=== PATIENT | female | born 1980 | race African-American/Black ===

== ENCOUNTER 2016-05-26 16:09 | Emergency (ER) | payer OTHER ==
[2016-05-26] MEDS ORDERED: Zofran 4 MG/2 ML VIAL IV ONE (16:59)
[2016-05-26] MEDS ORDERED: Sodium Chloride 0.9% 1000 ML 1,000 ML IV STA (16:59)
--- NOTE | 2016-05-26 17:02 | ERPHSYRPT ---
- History of Present Illness Time Seen by Provider: 05/26/16 16:40 Source: patient Patient Subjective Stated Complaint: pt states she was dx with influneza B 3 days ago at [facility]. pt states she was seen again last pm at [facility] for headache and neck pain, states lab results were good. pt c/o neck and back pain with low grade fever. Triage Nursing Assessment: pt pink, warm, dry. pt ambulated into ER without difficulty. Physician History: PATIENT EVALUATED AT [facility] DIAGNOSED WITH INFLUENZA B THE PAST 4 DAYS, HAS NONPRODUCTIVE COUGH AND SEVERE NECK STIFFNESS ASSOCIATED WITH PAIN AND HEADACHE WITH FEVER. 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 Associated Symptoms: cough, headache, sore throat, stiff neck International travel in last 2 weeks: No Allergies/Adverse Reactions: No Known Drug Allergies Allergy (Verified 05/26/16 16:35) Home Medications: Hydrocodone Bit/Acetaminophen [Amado 5-325 Tablet] 1 each PO Q6H PRN PRN [History] Hx Tetanus, Diphtheria Vaccination/Date Given: Yes (up to date) Hx Influenza Vaccination/Date Given: No Hx Pneumococcal Vaccination/Date Given: No Immunizations Up to Date: Yes - Review of Systems Constitutional: Fever, No Chills Eyes: No Symptoms Ears, Nose, & Throat: No Symptoms Respiratory: No Cough, No Dyspnea Cardiac: No Chest Pain, No Edema, No Syncope Abdominal/Gastrointestinal: No Abdominal Pain, No Nausea, No Vomiting, No Diarrhea Genitourinary Symptoms: No Dysuria Musculoskeletal: Neck Pain, No Back Pain Skin: No Rash Neurological: Headache, No Dizziness, No Focal Weakness, No Sensory Changes Psychological: No Symptoms Endocrine: No Symptoms All Other Systems: Reviewed and Negative - Past Medical History Pertinent Past Medical History: Yes Neurological History: Seizures ENT History: No Pertinent History Cardiac History: No Pertinent History Respiratory History: No Pertinent History Endocrine Medical History: No Pertinent History Musculoskeletal History: No Pertinent History GI Medical History: Diverticulitis History: No Pertinent History Psycho-Social History: Depression, Eating Disorders Female Reproductive Disorders: Endometriosis Other Medical History: updated 01/01/15 - Past Surgical History Past Surgical History: Yes Neuro Surgical History: No Pertinent History Cardiac: No Pertinent History Respiratory: No Pertinent History Gastrointestinal: Appendectomy, Exploratory Laparoscopy Genitourinary: No Pertinent History Musculoskeletal: No Pertinent History Female Surgical History: Other Other Surgical History: ovary removed. fallopian tube removal - Social History Smoking Status: Current every day smoker How long have you smoked: 15 Exposure to second hand smoke: Yes Drug Use: none Patient Lives Alone: No - Female History Hx Last Menstrual Period: 2 yrs ago - Nursing Vital Signs Nursing Vital Signs: Initial Vital Signs Temperature 100.2 F Temperature Source Oral Pulse Rate 81 Respiratory Rate 16 Blood Pressure [Right Arm] 102/63 Pain Intensity 8 - Physical Exam General Appearance: no apparent distress, alert Eye Exam: PERRL/EOMI ENT Exam: normal ENT inspection, No pharyngeal erythema, No tonsillar exudate Neck Exam: normal inspection, limited range of motion, stiff neck, No meningismus Respiratory Exam: normal breath sounds, lungs clear, no respiratory distress Cardiovascular/Chest Exam: normal heart sounds, regular rate/rhythm, No murmur, No edema Gastrointestinal/Abdominal Exam: soft, non tender, no distention Extremity Exam: non-tender, normal range of motion, normal inspection, normal capillary refill Neurologic Exam: alert, oriented x 3, cooperative, vp foundation II-XII nml as tested, normal mood/affect, sensation nml, No motor deficits Skin Exam: normal color, warm, dry, No rash SpO2 Interpretation: normal SpO2: 97 Oxygen Delivery: Room Air Procedures - Lumbar Puncture Timeout: Performed Indication: fever, headache, r/o meningitis Lumbar Puncture: consent obtained, lying, betadine prep (IN A LEFT LATERAL DECUBITUS POSITION), 1% lidocaine local anesth, size of needle (22GA SPINAL NEEDLE, ), 3-4 lumbar space, fluid color clear, no complications (MIDLINE APPROACH X 2 ATTEMPTS, UNDER ASEPTIC TECHNIQUE) Ordered Tests: Active Orders 24 hr Category Date Time Status IV Insertion STAT Care 05/26/16 16:59 Active Oxygen-ED Only NASAL CANNULA 2 lpm Care 05/26/16 17:01 Active HEAD WITHOUT CONTRAST [CT] Stat Exams 05/26/16 17:00 Taken BLOOD CULTURE Stat Lab 05/26/16 17:03 Received BMP Stat Lab 05/26/16 17:02 Completed CBC W DIFF Stat Lab 05/26/16 17:02 Completed CSF GLUCOSE Stat Lab 05/26/16 18:58 Completed CSF PROTEIN Stat Lab 05/26/16 18:58 Completed CSF, CELL COUNT Stat Lab 05/26/16 18:58 Completed CULTURE, THROAT Stat Lab 05/26/16 17:19 Received CULTURE,CSF Stat Lab 05/26/16 18:33 Uncollected CULTURE,CSF Stat Lab 05/26/16 19:05 Results HCG,QUALITATIVE URINE Stat Lab 05/26/16 17:28 Completed STREP SCREEN-BETA A Stat Lab 05/26/16 17:19 Completed UA W/ MICROSCOPIC Stat Lab 05/26/16 17:28 Completed Medication Summary Discontinued Medications Generic Name Dose Route Start Last Admin Trade Name Ady PRN Reason Stop Dose Admin Acetaminophen 650 mg 05/26/16 17:03 05/26/16 17:13 Tylenol 325 Mg PO 05/26/16 17:04 650 mg STAT STA Administration Acetaminophen Confirm 05/26/16 17:11 Tylenol 325 Mg Administered 05/26/16 17:12 Dose 650 mg .ROUTE .STK-MED ONE Hydromorphone HCl Confirm 05/26/16 17:11 Hydromorphone 1 Mg/Ml Ampule Administered 05/26/16 17:12 Dose 1 mg .ROUTE .STK-MED ONE Hydromorphone HCl 1 mg 05/26/16 17:15 05/26/16 17:20 Hydromorphone 1 Mg/Ml Ampule IV 05/26/16 17:16 1 mg STAT ONE Administration Hydromorphone HCl 1 mg 05/26/16 18:32 05/26/16 18:36 Hydromorphone 1 Mg/Ml Ampule IV 05/26/16 18:33 1 mg STAT ONE Administration Hydromorphone HCl Confirm 05/26/16 18:35 Hydromorphone 1 Mg/Ml Ampule Administered 05/26/16 18:36 Dose 1 mg .ROUTE .STK-MED ONE Sodium Chloride 1,000 mls @ 999 mls/hr 05/26/16 16:59 05/26/16 17:13 Sodium Chloride 0.9% 1000 Ml IV 05/26/16 17:59 999 mls/hr .Q1H1M STA Administration Sodium Chloride Confirm 05/26/16 17:11 Sodium Chloride 0.9% 1000 Ml Administered 05/26/16 17:12 Dose 1,000 mls @ ud .ROUTE .STK-MED ONE Ceftriaxone Sodium/Dextrose Confirm 05/26/16 17:45 Rocephin 2 Gm-D5w 50ml Bag Administered 05/26/16 17:46 Dose 50 mls @ ud IV .STK-MED ONE Ceftriaxone Sodium/Dextrose 50 mls @ 100 mls/hr 05/26/16 17:52 05/26/16 17:55 Rocephin 2 Gm-D5w 50ml Bag IV 05/26/16 18:21 100 mls/hr STAT ONE Administration Lorazepam 2 mg 05/26/16 17:52 05/26/16 17:55 Ativan 2 Mg/1 Ml Vial IV 05/26/16 17:53 2 mg STAT ONE Administration Lorazepam Confirm 05/26/16 17:54 Ativan 2 Mg/1 Ml Vial Administered 05/26/16 17:55 Dose 2 mg .ROUTE .STK-MED ONE Ondansetron HCl 4 mg 05/26/16 16:59 05/26/16 17:13 Zofran 4 Mg/2 Ml Vial IV 05/26/16 17:00 4 mg STAT ONE Administration Ondansetron HCl Confirm 05/26/16 17:11 Zofran 4 Mg/2 Ml Vial Administered 05/26/16 17:12 Dose 4 mg .ROUTE .STK-MED ONE Lab/Rad Data: Laboratory Result Diagrams 05/26/16 17:02 05/26/16 17:02 Laboratory Results 05/26/16 05/26/16 05/26/16 Range/Units 18:58 18:58 17:28 WBC (4.0-10.5) K/mm3 RBC (4.1-5.4) M/mm3 Hgb (12.0-16.0) gm/dl Hct (35-47) % MCV (78-100) fl MCH (26-32) pg MCHC (32-36) g/dl RDW (11.5-14.0) % Plt Count (150-450) K/mm3 MPV (6-9.5) fl Gran % (36.0-66.0) % Lymphocytes % (24.0-44.0) % Monocytes % (0.0-12.0) % Eosinophils % (0.00-5.0) % Basophils % (0.0-0.4) % Basophils # (0-0.4) Sodium (136-145) mEq/L Potassium (3.5-5.1) mEq/L Chloride (98-107) mEq/L Carbon Dioxide (21-32) mEq/L Anion Gap (5-15) MEQ/L BUN (9-20) mg/dL Creatinine (0.55-1.30) mg/dl Estimated GFR ML/MIN Glucose (70-110) MG/DL Calcium (8.5-10.1) mg/dL Ur Collection Type Urine Color (YELLOW) Urine Appearance (CLEAR) Urine pH (5-6) Ur Specific [place] (1.005-1.025) Urine Protein (Negative) Urine Glucose (UA) (NEGATIVE) mg/dL Urine Ketones (NEGATIVE) Urine Nitrite (NEGATIVE) Urine Bilirubin (NEGATIVE) Urine Urobilinogen (0-1) mg/dL Urine WBC (Auto) (NEGATIVE) Urine RBC (Auto) (0-5) Jairo/ul Urine Microscopic RBC (0-2) /HPF Urine Microscopic WBC (0-5) /HPF Ur Epithelial Cells (FEW) /HPF Urine Bacteria (NEGATIVE) /HPF Urine Trichomonas (NEGATIVE) /HPF Urine HCG, Qual NEGATIVE (Negative) CSF Appearance CLEAR CSF Color COLORLESS CSF WBC 1 (0-6) CU. MM CSF RBC 1 (0-2) CU. MM CSF Protein (2) 26.0 (15-45) MG/DL CSF Glucose 69 (40-75) MG/DL Streptococcus Screen (Negative) Specimen Received 05/26/16 05/26/16 05/26/16 Range/Units 17:28 17:19 17:02 WBC (4.0-10.5) K/mm3 RBC (4.1-5.4) M/mm3 Hgb (12.0-16.0) gm/dl Hct (35-47) % MCV (78-100) fl MCH (26-32) pg MCHC (32-36) g/dl RDW (11.5-14.0) % Plt Count (150-450) K/mm3 MPV (6-9.5) fl Gran % (36.0-66.0) % Lymphocytes % (24.0-44.0) % Monocytes % (0.0-12.0) % Eosinophils % (0.00-5.0) % Basophils % (0.0-0.4) % Basophils # (0-0.4) Sodium 142 (136-145) mEq/L Potassium 3.2 L (3.5-5.1) mEq/L Chloride 105 (98-107) mEq/L Carbon Dioxide 24.6 (21-32) mEq/L Anion Gap 15.1 H (5-15) MEQ/L BUN 5 L (9-20) mg/dL Creatinine 0.71 (0.55-1.30) mg/dl Estimated GFR > 60 ML/MIN Glucose 116 H (70-110) MG/DL Calcium 8.2 L (8.5-10.1) mg/dL Ur Collection Type CLEAN CATCH Urine Color YELLOW (YELLOW) Urine Appearance CLEAR (CLEAR) Urine pH 7.0 (5-6) Ur Specific [place] 1.015 (1.005-1.025) Urine Protein NEGATIVE (Negative) Urine Glucose (UA) NEGATIVE (NEGATIVE) mg/dL Urine Ketones NEGATIVE (NEGATIVE) Urine Nitrite NEGATIVE (NEGATIVE) Urine Bilirubin NEGATIVE (NEGATIVE) Urine Urobilinogen 1 (0-1) mg/dL Urine WBC (Auto) SMALL (NEGATIVE) Urine RBC (Auto) SMALL (0-5) Jairo/ul Urine Microscopic RBC 2-5 (0-2) /HPF Urine Microscopic WBC 15-25 (0-5) /HPF Ur Epithelial Cells MODERATE (FEW) /HPF Urine Bacteria RARE (NEGATIVE) /HPF Urine Trichomonas PRESENT (NEGATIVE) /HPF Urine HCG, Qual (Negative) CSF Appearance CSF Color CSF WBC (0-6) CU. MM CSF RBC (0-2) CU. MM CSF Protein (2) (15-45) MG/DL CSF Glucose (40-75) MG/DL Streptococcus Screen NEGATIVE (Negative) Specimen Received 05/26/16 1710 05/26/16 Range/Units 17:02 WBC 6.4 (4.0-10.5) K/mm3 RBC 4.47 (4.1-5.4) M/mm3 Hgb 13.2 (12.0-16.0) gm/dl Hct 38.7 (35-47) % MCV 86.6 (78-100) fl MCH 29.5 (26-32) pg MCHC 34.1 (32-36) g/dl RDW 14.0 (11.5-14.0) % Plt Count 187 (150-450) K/mm3 MPV 9.2 (6-9.5) fl Gran % 70.8 H (36.0-66.0) % Lymphocytes % 16.6 L (24.0-44.0) % Monocytes % 12.4 H (0.0-12.0) % Eosinophils % 0.0 (0.00-5.0) % Basophils % 0.2 (0.0-0.4) % Basophils # 0.01 (0-0.4) Sodium (136-145) mEq/L Potassium (3.5-5.1) mEq/L Chloride (98-107) mEq/L Carbon Dioxide (21-32) mEq/L Anion Gap (5-15) MEQ/L BUN (9-20) mg/dL Creatinine (0.55-1.30) mg/dl Estimated GFR ML/MIN Glucose (70-110) MG/DL Calcium (8.5-10.1) mg/dL Ur Collection Type Urine Color (YELLOW) Urine Appearance (CLEAR) Urine pH (5-6) Ur Specific [place] (1.005-1.025) Urine Protein (Negative) Urine Glucose (UA) (NEGATIVE) mg/dL Urine Ketones (NEGATIVE) Urine Nitrite (NEGATIVE) Urine Bilirubin (NEGATIVE) Urine Urobilinogen (0-1) mg/dL Urine WBC (Auto) (NEGATIVE) Urine RBC (Auto) (0-5) Jairo/ul Urine Microscopic RBC (0-2) /HPF Urine Microscopic WBC (0-5) /HPF Ur Epithelial Cells (FEW) /HPF Urine Bacteria (NEGATIVE) /HPF Urine Trichomonas (NEGATIVE) /HPF Urine HCG, Qual (Negative) CSF Appearance CSF Color CSF WBC (0-6) CU. MM CSF RBC (0-2) CU. MM CSF Protein (2) (15-45) MG/DL CSF Glucose (40-75) MG/DL Streptococcus Screen (Negative) Specimen Received - Progress Progress: improved Progress Note: 05/26/16 17:10 PATIENT ADMINISTERED IV NORMAL SALINE 1LITER, BOLUS, ZOFRAN 4MG, DILAUDID 1MG, ATIVAN 1MG IV 05/26/16 17:10 DISCUSSED WITH PATIENT RISK VS BENEFIT CONCERNING LUMBAR PUNCTURE FOR NECK STIFFNESS AND SEVERE HEADACHE, PROCEDURE CONSENT SIGNED AT 1715- PATIENT GIVE ROCEPHIN 2GM IVPB 05/26/16 20:16 Counseled pt/family regarding: lab results, diagnosis, need for follow-up, rad results - Departure Time of Disposition: 20:30 Departure Disposition: Home Clinical Impression: ACUTE SINUSITIS, URINARY TRACT INFECTION Condition: Stable Critical Care Time: No Additional Instructions: FOLLOWUP WITH YOUR FAMILY PHYSICIAN IN 1 WEEK. ANTIBIOTIC LEVAQUIN 500MG DAILY FOR 10 DAYS. VALIUM 5MG TWICE DAILY FOR MUSCLE SPASMS. NORCO 10/325 EVERY 4 HOURS FOR PAIN DISCOMFORT. Prescriptions: Hydrocodone/APAP 10/325 mg [Amado 10/325 MG Tablet] 1 tab PO Q4H PRN PRN # 15 tablet PRN Reason: Pain Diazepam 5 mg [Valium 5 MG] 5 mg PO BIDPRN PRN #10 tablet PRN Reason: Muscle Spasms Levofloxacin [Levaquin] 500 mg PO DAILY #10 tablet
[2016-05-26] MEDS ORDERED: TYLENOL 325 MG PO STA (17:03)
[2016-05-26] MEDS ORDERED: Hydromorphone 1 mg/ml Ampule ONE ×2 (17:11→18:35)
[2016-05-26] MEDS ORDERED: Sodium Chloride 0.9% 1000 ML 1,000 ML ONE (17:11)
[2016-05-26] MEDS ORDERED: Zofran 4 MG/2 ML VIAL ONE (17:11)
[2016-05-26] MEDS ORDERED: TYLENOL 325 MG ONE (17:11)
[2016-05-26 17:15] LABS: BASOPHIL % 0.2 % (0.0-0.4); Granulocytes % 70.8 % (36.0-66.0); Lymphocytes % 16.6 % (24.0-44.0); Mean Cell Volume 86.6 fl (78-100); Mean Corpuscular Hemoglobin 29.5 pg (26-32); Mean Platelet Volume 9.2 fl (6-9.5); Monocytes % 12.4 % (0.0-12.0); Platelet Count 187 K/mm3 (150-450); Red Blood Count 4.47 M/mm3 (4.1-5.4); White Blood Count 6.4 K/mm3 (4.0-10.5)
[2016-05-26] MEDS ORDERED: Hydromorphone 1 mg/ml Ampule IV ONE ×2 (17:15→18:32)
[2016-05-26] MEDS ORDERED: ROCEPHIN 2 Gm-D5w 50ML BAG** 50 ML IV ONE ×2 (17:45→17:52)
[2016-05-26] MEDS ORDERED: Ativan 2 MG/1 ML VIAL IV ONE (17:52)
[2016-05-26] MEDS ORDERED: Ativan 2 MG/1 ML VIAL ONE (17:54)
[2016-05-26 17:56] LABS: Collection Type CLEAN CATCH
[2016-05-26 17:57] LABS: Bacteria RARE /HPF (NEGATIVE); COMPLETE URINE MICROSCOPIC? YES; Epithelial Cells MODERATE /HPF (FEW); Trichomonas PRESENT /HPF (NEGATIVE); WBC 15-25 /HPF (0-5)
[2016-05-26 18:09] LABS: ANION GAP 15.1 MEQ/L (5-15); BLOOD UREA NITROGEN 5 mg/dL (9-20); CHLORIDE 105 mEq/L (98-107); Carbon Dioxide 24.6 mEq/L (21-32); Glucose 116 MG/DL (70-110); Potassium 3.2 mEq/L (3.5-5.1); SODIUM 142 mEq/L (136-145)
[2016-05-26 19:16] LABS: CSF CLARITY CLEAR; CSF COLOR COLORLESS
[2016-05-26] MEDS ORDERED: Norco 10/325 MG Tablet PO ONE (20:16)
[2016-05-26 20:25] VITALS: O2SAT 97
[2016-05-26] MEDS ORDERED: Norco 10/325 MG Tablet ONE (20:26)
[2016-05-26 20:32] VITALS: BP 117/54; PULSE 77
--- NOTE | 2016-05-26 21:08 | XRAY ---
Indication: Severe headache, stiff neck, and bilateral leg numbness for over one week. Multiple contiguous axial images obtained through the head without contrast. Comparison: September 27, 2012. Again normal appearing brain parenchyma, ventricles, and bony calvarium. There is moderate mucosal thickening of the visualized maxillary and sphenoid sinuses bilaterally and lesser degree frontal sinuses. Visualized mastoid air cells are clear. Impression: Again no acute intracranial abnormalities. Incidental paranasal sinuses disease. Comment: Preliminary interpretation was made by [facility]. No discrepancy. CTDI 67.22
== END 2016-05-26 20:34 | disposition home or self-care (01) ==
LOC: ED 16:09
DX: J01.90 Acute sinusitis, unspecified (principal); N39.0 Urinary tract infection, site not specified; R05 Cough; M43.6 Torticollis; R51 Headache
CPT/HCPCS: 36000; 36415; 62270; 70450; 80048; 81000; 82945; 84157; 84703; 85025; 86403; 87040; 87070; 87102; 87430; 89050; 96360; 96365; 96374; 96375; 96376; 99285; J0696; J1170; J2060; J2405; A9270-GY

== ENCOUNTER 2016-11-08 11:56 | Emergency (ER) | payer OTHER ==
[2016-11-08] MEDS ORDERED: Sodium Chloride 0.9% 1000 ML 1,000 ML IV STA (12:30)
[2016-11-08] MEDS ORDERED: Vistaril 50 MG/ML IM ONE ×2 (12:30→12:42)
[2016-11-08] MEDS ORDERED: Pepcid 20 MG VIAL IV ONE ×2 (12:30→12:42)
[2016-11-08] MEDS ORDERED: TORAdol 30 mg Injection IV ONE (12:30)
[2016-11-08] MEDS ORDERED: TORAdol 30 mg Injection ONE (12:42)
[2016-11-08] MEDS ORDERED: Sodium Chloride 0.9% 1000 ML 1,000 ML ONE (12:42)
--- NOTE | 2016-11-08 12:47 | ERPHSYRPT ---
- History of Present Illness Time Seen by Provider: 11/08/16 12:12 Historian: patient Patient Subjective Stated Complaint: pt states she was seen at [facility] ER 4 days ago. states she had a ct scan that was negative. pt states she does not have a family Dr to follow up wtih. pt c/o pain inj left lower quad. Triage Nursing Assessment: pt pink, warm, dry. abdomen soft tender in left lower quad. bowel sounds present in all 4 quads. Physician History: CC: abd pain HX: 36 y/o patient moved here from [place]. She has hx of diverticulitis. She has LLQ abd pain, some blood in stool, N/V. Normal urination. No fever or chills. She had ER visit at [facility] including CT earlier this week and took norco thru there. She had prior hysterectomy with left oophorectomy, appendectomy. Pain is moderately severe and makes her curl in a ball. Allergies/Adverse Reactions: No Known Drug Allergies Allergy (Verified 11/08/16 12:12) Home Medications: Multivits,Ca,Minerals/Iron/FA [Women's Daily Formula Caplet] 1 each PO DAILY [History] Hx Tetanus, Diphtheria Vaccination/Date Given: Yes (up to date) Hx Influenza Vaccination/Date Given: No Hx Pneumococcal Vaccination/Date Given: No Immunizations Up to Date: Yes - Review of Systems Constitutional: Malaise, No Fever, No Chills Eyes: No Symptoms Ears, Nose, & Throat: No Symptoms Respiratory: No Cough, No Dyspnea Cardiac: No Chest Pain Abdominal/Gastrointestinal: Abdominal Pain, Nausea, Vomiting, Hematochezia, No Constipation Genitourinary Symptoms: No Dysuria Musculoskeletal: No Back Pain Skin: No Rash Neurological: No Headache All Other Systems: Reviewed and Negative - Past Medical History Pertinent Past Medical History: Yes Neurological History: Seizures ENT History: No Pertinent History Cardiac History: No Pertinent History Respiratory History: No Pertinent History Endocrine Medical History: No Pertinent History Musculoskeletal History: No Pertinent History GI Medical History: Diverticulitis History: No Pertinent History Psycho-Social History: Depression, Eating Disorders Female Reproductive Disorders: Endometriosis Other Medical History: updated 01/01/15 - Past Surgical History Past Surgical History: Yes Neuro Surgical History: No Pertinent History Cardiac: No Pertinent History Respiratory: No Pertinent History Gastrointestinal: Appendectomy, Exploratory Laparoscopy Genitourinary: No Pertinent History Musculoskeletal: No Pertinent History Female Surgical History: Other Other Surgical History: ovary removed. fallopian tube removal - Social History Smoking Status: Current every day smoker How long have you smoked: 20 Exposure to second hand smoke: Yes Drug Use: none Patient Lives Alone: No - Female History Hx Last Menstrual Period: partial hyster - Nursing Vital Signs Nursing Vital Signs: Initial Vital Signs Temperature 99.0 F 11/08/16 12:06 Pulse Rate 77 11/08/16 12:06 Respiratory Rate 18 11/08/16 12:06 Blood Pressure 107/61 11/08/16 12:06 O2 Sat by Pulse Oximetry 98 11/08/16 12:06 Pain Scale Pain Intensity 5 - Physical Exam General Appearance: alert Eye Exam: PERRL/EOMI Ears, Nose, Throat Exam: normal ENT inspection, moist mucous membranes Neck Exam: normal inspection, supple Respiratory Exam: normal breath sounds Cardiovascular Exam: regular rate/rhythm Gastrointestinal/Abdomen Exam: soft, tenderness (LLQ) Extremity Exam: normal inspection, normal range of motion Neurologic Exam: alert, oriented x 3, cooperative, sensation nml, No motor deficits Skin Exam: warm, dry, No rash SpO2 Interpretation: normal SpO2: 98 Oxygen Delivery: Room Air - Course Nursing assessment & vital signs reviewed: Yes - Radiology Exams AAS X-ray Interpretation: Teleradiologist Report, Negative Ordered Tests: Active Orders 24 hr Category Date Time Status Clean Catch Urine Specimen STAT Care 11/08/16 12:30 Active IV Insertion STAT Care 11/08/16 12:30 Active OBSTR/ACUTE ABDOMEN SERIES Stat Exams 11/08/16 12:30 Completed CBC W DIFF Stat Lab 11/08/16 12:50 Completed CMP Stat Lab 11/08/16 12:50 Completed CULTURE,URINE Stat Lab 11/08/16 13:20 Received LIPASE Stat Lab 11/08/16 12:50 Completed UA W/ MICROSCOPIC Stat Lab 11/08/16 13:20 Completed Medication Summary Discontinued Medications Generic Name Dose Route Start Last Admin Trade Name Freq PRN Reason Stop Dose Admin Famotidine 20 mg 11/08/16 12:30 11/08/16 12:47 Pepcid 20 Mg Vial IV 11/08/16 12:31 20 mg STAT ONE Administration Famotidine Confirm 11/08/16 12:42 Pepcid 20 Mg Vial Administered 11/08/16 12:43 Dose 20 mg IV .STK-MED ONE Hydroxyzine HCl 50 mg 11/08/16 12:30 11/08/16 12:47 Vistaril 50 Mg/Ml IM 11/08/16 12:31 50 mg STAT ONE Administration Hydroxyzine HCl Confirm 11/08/16 12:42 Vistaril 50 Mg/Ml Administered 11/08/16 12:43 Dose 50 mg IM .STK-MED ONE Sodium Chloride 1,000 mls @ 999 mls/hr 11/08/16 12:30 11/08/16 12:47 Sodium Chloride 0.9% 1000 Ml IV 11/08/16 13:30 999 mls/hr .Q1H1M STA Administration Sodium Chloride Confirm 11/08/16 12:42 Sodium Chloride 0.9% 1000 Ml Administered 11/08/16 12:43 Dose 1,000 mls @ ud .ROUTE .STK-MED ONE Ketorolac Tromethamine 30 mg 11/08/16 12:30 11/08/16 12:47 Toradol 30 Mg Injection IV 11/08/16 12:31 30 mg STAT ONE Administration Ketorolac Tromethamine Confirm 11/08/16 12:42 Toradol 30 Mg Injection Administered 11/08/16 12:43 Dose 30 mg .ROUTE .STK-MED ONE Lab/Rad Data: Laboratory Result Diagrams 11/08/16 12:50 11/08/16 12:50 Laboratory Results 11/08/16 11/08/16 11/08/16 Range/Units 13:20 12:50 12:50 WBC 10.1 (4.0-10.5) K/mm3 RBC 4.71 (4.1-5.4) M/mm3 Hgb 13.5 (12.0-16.0) gm/dl Hct 40.8 (35-47) % MCV 86.6 (78-100) fl MCH 28.7 (26-32) pg MCHC 33.1 (32-36) g/dl RDW 14.3 H (11.5-14.0) % Plt Count 373 (150-450) K/mm3 MPV 8.9 (6-9.5) fl Gran % 71.6 H (36.0-66.0) % Lymphocytes % 17.7 L (24.0-44.0) % Monocytes % 8.9 (0.0-12.0) % Eosinophils % 1.3 (0.00-5.0) % Basophils % 0.5 (0.0-0.4) % Basophils # 0.05 (0-0.4) Sodium 141 (136-145) mEq/L Potassium 3.7 (3.5-5.1) mEq/L Chloride 108 H (98-107) mEq/L Carbon Dioxide 24.1 (21-32) mEq/L Anion Gap 12.3 (5-15) MEQ/L BUN 6 L (9-20) mg/dL Creatinine 0.71 (0.55-1.30) mg/dl Estimated GFR > 60 ML/MIN Glucose 95 (70-110) MG/DL Calcium 8.8 (8.5-10.1) mg/dL Total Bilirubin 0.80 (0.2-1.0) mg/dL AST 16 (15-37) U/L ALT 18 (12-78) U/L Alkaline Phosphatase 68 (46-116) U/L Serum Total Protein 7.1 (6.4-8.2) gm/dL Albumin 3.8 (3.4-5.0) g/dL Lipase 64 L (73-393) U/L Ur Collection Type CCMS Urine Color YELLOW (YELLOW) Urine Appearance SLIGHTLY CLOUDY (CLEAR) Urine pH 8.0 (5-6) Ur Specific [place] 1.010 (1.005-1.025) Urine Protein NEGATIVE (Negative) Urine Ketones NEGATIVE (NEGATIVE) Urine Blood TRACE NON-HEM (0-5) Jairo/ul Urine Nitrite NEGATIVE (NEGATIVE) Urine Bilirubin NEGATIVE (NEGATIVE) Urine Urobilinogen NORMAL (0-1) mg/dL Ur Leukocyte Esterase NEGATIVE (NEGATIVE) Urine Microscopic RBC 0-2 (0-2) /HPF Urine Microscopic WBC 0-2 (0-5) /HPF Ur Epithelial Cells FEW (FEW) /HPF Amorphous Crystals MODERATE (NEGATIVE) /HPF Urine Bacteria FEW (NEGATIVE) /HPF Urine Glucose NEGATIVE (NEGATIVE) mg/dL Specimen Received 11-08-16 1350 - Progress Progress Note: 11/08/16 12:46 CT abd/pelvis report from [facility] 11-05-16 reviewed: no acute, moderate diverticulosis without evidence of acute diverticulitis. 11/08/16 14:06 She was given toradol, pepcid, vistaril, and IVF here. Labs reassuring. She has made appt to see Dr Katherin Pleitez for follow up. Will Rx abtx to cover diverticulitis - discussed possible side effects. Counseled pt/family regarding: diagnosis, need for follow-up - Departure Time of Disposition: 14:07 Departure Disposition: Home Clinical Impression: LLQ abdominal pain, Diverticulitis, History of hysterectomy Condition: Stable Critical Care Time: No Referrals: ARMANI PLEITEZ MD [NON-STAFF PHY W/O PRIVILEGES] - Instructions: Abdominal Pain-Adult, Diverticulitis Additional Instructions: ABDOMINAL PAIN 1. There are several different causes for abdominal pain, some of which may not be able to be identified on initial examination. 2. The important thing to remember is that bodily functions can change in a short period of time. If you notice any of the following symptoms, return to the emergency department or consult your doctor immediately: A. Worsening pain or no improvement in the next 12 hours. B. Increasing, severe abdominal pain C. Blood in stool D. Black stools E. Persistent vomiting F. Fever or chills or other symptoms Rx cipro Rx flagyl- no alcohol products No driving today Tylenol as directed or pain Return for problems or concerns Follow up with Dr Katherin Pleitez next week Prescriptions: Ciprofloxacin [Cipro 500 MG] 1 tab PO BID #20 tablet Metronidazole 500 mg [Flagyl 500 MG] 500 mg PO BID #20 tablet
[2016-11-08 13:00] LABS: BASOPHIL % 0.5 % (0.0-0.4); Eosinophil % 1.3 % (0.00-5.0); Granulocytes % 71.6 % (36.0-66.0); Lymphocytes % 17.7 % (24.0-44.0); Mean Cell Volume 86.6 fl (78-100); Mean Corpuscular Hemoglobin 28.7 pg (26-32); Mean Platelet Volume 8.9 fl (6-9.5); Monocytes % 8.9 % (0.0-12.0); Platelet Count 373 K/mm3 (150-450); Red Blood Count 4.71 M/mm3 (4.1-5.4); Red Cell Distribution Width 14.3 % (11.5-14.0); White Blood Count 10.1 K/mm3 (4.0-10.5)
[2016-11-08 13:24] LABS: ALBUMIN 3.8 g/dL (3.4-5.0); ALKALINE PHOSPHATASE 68 U/L (46-116); ANION GAP 12.3 MEQ/L (5-15); BLOOD UREA NITROGEN 6 mg/dL (9-20); CHLORIDE 108 mEq/L (98-107); Carbon Dioxide 24.1 mEq/L (21-32); Glucose 95 MG/DL (70-110); LIPASE 64 U/L (73-393); Potassium 3.7 mEq/L (3.5-5.1); SGOT/AST 16 U/L (15-37); SGPT/ALT 18 U/L (12-78); SODIUM 141 mEq/L (136-145); Total Protein 7.1 gm/dL (6.4-8.2)
--- NOTE | 2016-11-08 13:24 | XRAY ---
Indication: Abdomen pain and vomiting. Comparison: None 2 views of the abdomen nonacute and nonobstructed. Solid organs and osseous structures unremarkable. Single PA chest demonstrates normal heart and lungs. Bony thorax intact with old left clavicle fracture. Impression: Negative abdomen. Normal 1 view chest.
[2016-11-08 13:50] LABS: Bilirubin NEGATIVE (NEGATIVE); Collection Type CCMS; Glucose NEGATIVE (NEGATIVE); Leukocyte Esterase NEGATIVE (NEGATIVE)
[2016-11-08 13:51] LABS: Blood TRACE NON-HEM Ery/ul (0-5); COMPLETE URINE MICROSCOPIC? YES
[2016-11-08 13:54] LABS: ADD URINE CULTURE? YES (NO); Bacteria FEW /HPF (NEGATIVE); Epithelial Cells FEW /HPF (FEW); WBC 0-2 /HPF (0-5)
[2016-11-08 14:25] VITALS: BP 120/70; PULSE 79; O2SAT 100
== END 2016-11-08 14:25 | disposition home or self-care (01) ==
LOC: ED 11:56
DX: R10.32 Left lower quadrant pain (principal); K57.92 Diverticulitis of intestine, part unspecified, without perforation or abscess without bleeding; Z90.710 Acquired absence of both cervix and uterus; K92.1 Melena; R11.2 Nausea with vomiting, unspecified
CPT/HCPCS: 36000; 36415; 74022; 80053; 81000; 83690; 85025; 87086; 96360; 96372; 96374; 96375; 99284; J1885; J3410

== ENCOUNTER 2019-10-23 16:32 | Emergency (ER) | payer MEDICAID, OTHER ==
[2019-10-23 16:59] VITALS: O2SAT 100
[2019-10-23] MEDS ORDERED: SUBLIMAZE 100 MCG/2 ML IV ONE (17:18)
[2019-10-23] MEDS ORDERED: Sodium Chloride 0.9% 1000 ML 1,000 ML IV STA (17:18)
[2019-10-23] MEDS ORDERED: Zofran 4 MG/2 ML VIAL IV ONE (17:18)
[2019-10-23] MEDS ORDERED: Sodium Chloride 0.9% 1000 ML 1,000 ML ONE (17:23)
[2019-10-23] MEDS ORDERED: Zofran 4 MG/2 ML VIAL ONE (17:23)
[2019-10-23] MEDS ORDERED: SUBLIMAZE 100 MCG/2 ML ONE (17:23)
--- NOTE | 2019-10-23 17:23 | ERPHSYRPT ---
- History of Present Illness Time Seen by Provider: 10/23/19 17:20 Historian: patient Exam Limitations: no limitations Patient Subjective Stated Complaint: pt here for left sided abd pain for about 4 days now, with n/v and constipation, has hx of diverticuli Triage Nursing Assessment: pt alert, respe easy, face mask in place, skin w/d, abd soft, moves all ext well Physician History: 39-year-old female came to the emergency room with complaining of abdominal pain more on the left lower quadrant radiating to the left upper quadrant and epigastric as well as umbilical area. Patient is complaining of constipation nausea but denies any vomiting. Patient had a fever with chills last night but patient is afebrile today. Patient has loss of appetite and had 1 small bowel movement. Patient states that she had multiple hospital admission for recurrent diverticulitis. Patient has not been exposed to COVID. Timing/Duration: day(s) (four days) Quality: cramping Abdominal Pain Onset Location: LLQ, epigastric, periumbilical Pain Radiation: LUQ Severity of Pain-Max: moderate Severity of Pain-Current: moderate Modifying Factors: Improves With: nothing Associated Symptoms: loss of appetite, nausea, vomiting Previous symptoms: same symptoms as today Allergies/Adverse Reactions: No Known Drug Allergies Allergy (Verified 10/23/19 16:59) Hx Tetanus, Diphtheria Vaccination/Date Given: Yes (up to date) Hx Influenza Vaccination/Date Given: No Hx Pneumococcal Vaccination/Date Given: No Travel Risk - International Travel Have you traveled outside of the country in past 3 weeks: No - Coronavirus Screening Are you exhibiting any of the following symptoms?: No Close contact with a COVID-19 positive Pt in past 14-21 Days: No - Review of Systems Constitutional: No Fever, No Chills Eyes: No Symptoms Ears, Nose, & Throat: No Symptoms Respiratory: No Cough, No Dyspnea Cardiac: No Chest Pain, No Edema, No Syncope Abdominal/Gastrointestinal: Abdominal Pain, Nausea, Vomiting, Constipation, No D iarrhea Genitourinary Symptoms: No Dysuria Musculoskeletal: No Back Pain, No Neck Pain Skin: No Rash Neurological: No Dizziness, No Focal Weakness, No Sensory Changes Psychological: No Symptoms Endocrine: No Symptoms All Other Systems: Reviewed and Negative - Past Medical History Pertinent Past Medical History: Yes Neurological History: Seizures ENT History: No Pertinent History Cardiac History: No Pertinent History Respiratory History: No Pertinent History Endocrine Medical History: No Pertinent History Musculoskeletal History: No Pertinent History GI Medical History: Diverticulitis History: No Pertinent History Psycho-Social History: Depression, Eating Disorders Female Reproductive Disorders: Endometriosis Other Medical History: updated 01/01/15 - Past Surgical History Past Surgical History: Yes Neuro Surgical History: No Pertinent History Cardiac: No Pertinent History Respiratory: No Pertinent History Gastrointestinal: Appendectomy, Exploratory Laparoscopy Genitourinary: No Pertinent History Musculoskeletal: No Pertinent History Female Surgical History: Other Other Surgical History: ovary removed. fallopian tube removal - Social History Smoking Status: Current every day smoker How long have you smoked: 20 Exposure to second hand smoke: Yes Drug Use: none Patient Lives Alone: No - Female History Hx Last Menstrual Period: hyster Hx Now: No - Nursing Vital Signs Nursing Vital Signs: Initial Vital Signs Temperature 98 F 10/23/19 16:55 Pulse Rate 91 H 10/23/19 16:55 Respiratory Rate 18 10/23/19 16:55 Blood Pressure 103/61 10/23/19 16:55 O2 Sat by Pulse Oximetry 100 10/23/19 16:55 Pain Scale Pain Intensity 8 - Physical Exam General Appearance: no apparent distress, alert Eye Exam: PERRL/EOMI, eyes nml inspection Ears, Nose, Throat Exam: normal ENT inspection, pharynx normal, moist mucous membranes Neck Exam: normal inspection, non-tender, supple, full range of motion Respiratory Exam: normal breath sounds, lungs clear, No respiratory distress Cardiovascular Exam: regular rate/rhythm, normal heart sounds Gastrointestinal/Abdomen Exam: soft, tenderness (LLQ), rebound, No mass, No ecchymosis, No pulsatile mass, No organomegaly, No splenomegaly Back Exam: normal inspection, normal range of motion, No CVA tenderness, No vertebral tenderness Extremity Exam: normal inspection, normal range of motion, pelvis stable Neurologic Exam: alert, oriented x 3, cooperative, normal mood/affect, nml cerebellar function, sensation nml, No motor deficits Skin Exam: normal color, warm, dry SpO2: 100 - Course Nursing assessment & vital signs reviewed: Yes - CT Exams Abdomen/Pelvis CT Interpretation: Tele-radiologist Report Ordered Tests: Active Orders 24 hr Category Date Time Status IV Insertion STAT Care 10/23/19 17:18 Active ABDOMEN AND PELVIS W/0 CONTRAS [CT] Stat Exams 10/23/19 17:19 Taken AMYLASE Stat Lab 10/23/19 17:38 Completed CBC W DIFF Stat Lab 10/23/19 17:38 Completed CMP Stat Lab 10/23/19 17:38 Completed LIPASE Stat Lab 10/23/19 17:38 Completed Lactic Acid Stat Lab 10/23/19 17:18 Completed UA W/RFX UR CULTURE Stat Lab 10/23/19 17:43 Completed Urine Triage Profile Stat Lab 10/23/19 17:43 Received Medication Summary Generic Name Dose Route Start Last Admin Trade Name Freq PRN Reason Stop Dose Admin Ceftriaxone Sodium/Dextrose 1 g in 50 mls @ 100 mls/hr 10/23/19 18:03 Rocephin 1 Gm-D5w 50 Ml Bag IV 10/23/19 18:32 STAT STA Discontinued Medications Generic Name Dose Route Start Last Admin Trade Name Freq PRN Reason Stop Dose Admin Fentanyl Citrate 50 mcg 10/23/19 17:18 10/23/19 17:26 Sublimaze 100 Mcg/2 Ml IV 10/23/19 17:19 50 mcg STAT ONE Administration Fentanyl Citrate Confirm 10/23/19 17:23 Sublimaze 100 Mcg/2 Ml Administered 10/23/19 17:24 Dose 100 mcg .ROUTE .STK-MED ONE Sodium Chloride 1,000 mls @ 999 mls/hr 10/23/19 17:18 10/23/19 17:25 Sodium Chloride 0.9% 1000 Ml IV 10/23/19 18:18 999 mls/hr .Q1H1M STA Administration Sodium Chloride Confirm 10/23/19 17:23 Sodium Chloride 0.9% 1000 Ml Administered 10/23/19 17:24 Dose 1,000 mls @ ud .ROUTE .STK-MED ONE Ondansetron HCl 4 mg 10/23/19 17:18 10/23/19 17:25 Zofran 4 Mg/2 Ml Vial IV 10/23/19 17:19 4 mg STAT ONE Administration Ondansetron HCl Confirm 10/23/19 17:23 Zofran 4 Mg/2 Ml Vial Administered 10/23/19 17:24 Dose 4 mg .ROUTE .STK-MED ONE Lab/Rad Data: Laboratory Result Diagrams 10/23/19 17:38 10/23/19 17:38 Laboratory Results 10/23/19 10/23/19 10/23/19 Range/Units 17:43 17:38 17:38 WBC 9.3 (4.0-10.5) K/mm3 RBC 4.55 (4.1-5.4) M/mm3 Hgb 13.1 (12.0-16.0) gm/dl Hct 40.2 (35-47) % MCV 88.4 (78-100) fl MCH 28.8 (26-32) pg MCHC 32.6 (32-36) g/dl RDW 13.6 (11.5-14.0) % Plt Count 373 (150-450) K/mm3 MPV 8.5 (7.5-11.0) fl Gran % 72.8 H (36.0-66.0) % Eos # (Auto) 0.20 (0-0.5) Absolute Lymphs (auto) 1.38 (1.0-4.6) Absolute Monos (auto) 0.92 (0.0-1.3) Lymphocytes % 14.8 L (24.0-44.0) % Monocytes % 9.9 (0.0-12.0) % Eosinophils % 2.1 (0.00-5.0) % Basophils % 0.4 (0.0-0.4) % Absolute Granulocytes 6.80 (1.4-6.9) Basophils # 0.04 (0-0.4) Sodium 139 (137-145) mmol/L Potassium 3.7 (3.5-5.1) mmol/L Chloride 105 (98-107) mmol/L Carbon Dioxide 27 (22-30) mmol/L Anion Gap 9.6 (5-15) MEQ/L BUN 12 (7-17) mg/dL Creatinine 0.52 (0.52-1.04) mg/dL Estimated GFR > 60.0 ML/MIN Glucose 92 (74-106) mg/dL Lactic Acid (0.4-2.0) Calcium 9.1 (8.4-10.2) mg/dL Total Bilirubin 0.70 (0.2-1.3) mg/dL AST 29 (14-36) U/L ALT 22 (0-35) U/L Alkaline Phosphatase 123 (38-126) U/L Serum Total Protein 7.3 (6.3-8.2) g/dL Albumin 4.1 (3.5-5.0) g/dL Amylase 45 (30-110) U/L Lipase 30 (23-300) U/L Urine Color DELVIS (YELLOW) Urine Appearance CLOUDY (CLEAR) Urine pH 6.0 (5-6) Ur Specific [place] 1.027 (1.005-1.025) Urine Protein NEGATIVE (Negative) Urine Ketones NEGATIVE (NEGATIVE) Urine Blood SMALL (0-5) Jairo/ul Urine Nitrite NEGATIVE (NEGATIVE) Urine Bilirubin SMALL (NEGATIVE) Urine Urobilinogen 4 (0-1) mg/dL Ur Leukocyte Esterase NEGATIVE (NEGATIVE) Urine WBC (Auto) 6-10 (0-5) /HPF Urine RBC (Auto) 0-2 (0-2) /HPF U Epithel Cells (Auto) FEW (FEW) /HPF Urine Bacteria (Auto) RARE (NEGATIVE) /HPF Calcium Oxalate Crystal 3-5 (NEGATIVE) /HPF Amorphous Crystals FEW (NEGATIVE) /HPF Urine Mucus (Auto) SLIGHT (NEGATIVE) /HPF Urine Culture Reflexed NO (NO) Urine Glucose NEGATIVE (NEGATIVE) mg/dL 10/23/19 Range/Units 17:18 WBC (4.0-10.5) K/mm3 RBC (4.1-5.4) M/mm3 Hgb (12.0-16.0) gm/dl Hct (35-47) % MCV (78-100) fl MCH (26-32) pg MCHC (32-36) g/dl RDW (11.5-14.0) % Plt Count (150-450) K/mm3 MPV (7.5-11.0) fl Gran % (36.0-66.0) % Eos # (Auto) (0-0.5) Absolute Lymphs (auto) (1.0-4.6) Absolute Monos (auto) (0.0-1.3) Lymphocytes % (24.0-44.0) % Monocytes % (0.0-12.0) % Eosinophils % (0.00-5.0) % Basophils % (0.0-0.4) % Absolute Granulocytes (1.4-6.9) Basophils # (0-0.4) Sodium (137-145) mmol/L Potassium (3.5-5.1) mmol/L Chloride (98-107) mmol/L Carbon Dioxide (22-30) mmol/L Anion Gap (5-15) MEQ/L BUN (7-17) mg/dL Creatinine (0.52-1.04) mg/dL Estimated GFR ML/MIN Glucose (74-106) mg/dL Lactic Acid 0.6 (0.4-2.0) Calcium (8.4-10.2) mg/dL Total Bilirubin (0.2-1.3) mg/dL AST (14-36) U/L ALT (0-35) U/L Alkaline Phosphatase (38-126) U/L Serum Total Protein (6.3-8.2) g/dL Albumin (3.5-5.0) g/dL Amylase (30-110) U/L Lipase (23-300) U/L Urine Color (YELLOW) Urine Appearance (CLEAR) Urine pH (5-6) Ur Specific [place] (1.005-1.025) Urine Protein (Negative) Urine Ketones (NEGATIVE) Urine Blood (0-5) Jairo/ul Urine Nitrite (NEGATIVE) Urine Bilirubin (NEGATIVE) Urine Urobilinogen (0-1) mg/dL Ur Leukocyte Esterase (NEGATIVE) Urine WBC (Auto) (0-5) /HPF Urine RBC (Auto) (0-2) /HPF U Epithel Cells (Auto) (FEW) /HPF Urine Bacteria (Auto) (NEGATIVE) /HPF Calcium Oxalate Crystal (NEGATIVE) /HPF Amorphous Crystals (NEGATIVE) /HPF Urine Mucus (Auto) (NEGATIVE) /HPF Urine Culture Reflexed (NO) Urine Glucose (NEGATIVE) mg/dL - Progress Progress: improved, pain not gone completely Counseled pt/family regarding: lab results, diagnosis, need for follow-up, rad results - Departure Departure Disposition: Home Clinical Impression: Acute diverticulitis UTI (urinary tract infection) Qualifiers: Urinary tract infection type: site unspecified Hematuria presence: without hematuria Qualified Code(s): N39.0 - Urinary tract infection, site not specified Condition: Stable Critical Care Time: Yes Critical Care Time(excluding separately billable procedures): Critical 30-74 mins Referrals: DOCTOR,NO FAMILY [Primary Care Provider] - CESAR LANE DO [ACTIVE STAFF] - Instructions: Diverticulitis (DC), Urinary Tract Infection, Adult (DC) Additional Instructions: Discharge/Care Plan LONG,MAX NEHA was seen on 10/23/19 in the Emergency Room. The patient was counseled regarding Diagnosis,Lab results, Imaging studies, need for follow up and when to return to the Emergency Room. Prescriptions given: Discharge Note I have spoken with the patient and/or caregivers. I have explained the patient's condition, diagnosis and treatment plan based on the information available to me at this time. I have answered the patient's and/or caregiver's questions and addressed any concerns. The patient and/or caregivers have as good understanding of the patient's diagnosis, condition and treatment plan as can be expected at this point. The vital signs have been stable. The patient's condition is stable and appropriate for discharge from the emergency department. The patient will pursue further outpatient evaluation with the primary care physician or other designated or consulting physician as outlined in the discharge instructions. The patient and/or caregivers are agreeable to this plan of care and follow-up instructions have been explained in detail. The patient and/or caregivers have received these instruction. The patient/and or caregivers are aware that any significant change in condition or worsening of symptoms should prompt an immediate return to this or the closest emergency department or call 911. MAX HATFIELD was seen on 10/23/19 n the Emergency Room. At that time you were treated for an emergent condition, during your visit Laboratory, Radiology and/or other procedures may have been ordered. It is very important that you follow-up with your Primary Care Physician NO FAMILY DOCTOR within the next 24- 48 hours to review your Emergency Room visit and the final results of testing that was ordered. Some test results such as Urine Cultures, Blood Cultures, and other cultures if ordered will not be finalized for 24-48 hours. If you do not have a Primary Care Provider please call the medical records d epartment at [phone] to obtain a copy of your results or you may sign into our patient portal to obtain these results by visiting us @ [email or web address] and completing the following steps: 1. Click on the Patient Portal link 2. Click the Patient Self Enrollment Link to complete the enrollment form and entering your 3. Once the enrollment form is completed you will receive an email with a temporary ID and password at the email address you provided. 4. Next choose a user name and password. Your user name must be at least 4 characters long and your password must be at least 4 characters long. 5. Choose a security question from the list and provide your answer to the question. If you already have signed into the Health Portal you may access your Health Care Information 07/10 by the following steps: 1. Login to our website @ [email or web address] 2. Enter your original user name and password. FAQS The [facility] Health Portal is an online tool that contains your Lab Results, Radiology Reports, Visit History, Discharge Instructions and Health Summary Lab and Radiology Results will not be available for 72 hours on the portal. The Portal is a secure site, passwords are encryted and URLs are re-written so they cannot be copied and pasted. You and authorized family members are the only ones who can access your Portal. Also there is a timeout feature that protects your information if you leave the Portal page open. If you have technical difficulty please use the Contact Us link on the page this will allow you to submit any questions you have regarding the Portal or you may contact the Medical Record Department at [phone]. Prescriptions: Ciprofloxacin [Cipro 500 MG] 500 mg PO BIDAC #20 tablet
[2019-10-23 17:41] LABS: BASOPHIL % 0.4 % (0.0-0.4); Basophil (Absolute #) 0.04 (0-0.4); Eosinophil % 2.1 % (0.00-5.0); Hematocrit 40.2 % (35-47); Hemoglobin 13.1 gm/dl (12.0-16.0); Lymphocyte (Absolute #) 1.38 (1.0-4.6); Lymphocytes % 14.8 % (24.0-44.0); Mean Cell Volume 88.4 fl (78-100); Mean Corpuscular Hemoglobin 28.8 pg (26-32); Mean Corpuscular Hgb Concent. 32.6 g/dl (32-36); Mean Platelet Volume 8.5 fl (7.5-11.0); Monocyte (Absolute #) 0.92 (0.0-1.3); Monocytes % 9.9 % (0.0-12.0); Neutrophil % 72.8 % (36.0-66.0); Platelet Count 373 K/mm3 (150-450); Red Blood Count 4.55 M/mm3 (4.1-5.4); Red Cell Distribution Width 13.6 % (11.5-14.0); White Blood Count 9.3 K/mm3 (4.0-10.5)
[2019-10-23 17:51] LABS: ALBUMIN 4.1 g/dL (3.5-5.0); ALKALINE PHOSPHATASE 123 U/L (38-126); AMYLASE 45 U/L (30-110); ANION GAP 9.6 MEQ/L (5-15); BLOOD UREA NITROGEN 12 mg/dL (7-17); CHLORIDE 105 mmol/L (98-107); Calcium 9.1 mg/dL (8.4-10.2); Carbon Dioxide 27 mmol/L (22-30); Creatinine 1 0.52 mg/dL (0.52-1.04); Glucose 92 mg/dL (74-106); LIPASE 30 U/L (23-300); Potassium 3.7 mmol/L (3.5-5.1); SGOT/AST 29 U/L (14-36); SGPT/ALT 22 U/L (0-35); SODIUM 139 mmol/L (137-145); Total Protein 7.3 g/dL (6.3-8.2)
[2019-10-23 17:53] LABS: Amourphous Crystal FEW /HPF (NEGATIVE); Appearance CLOUDY (CLEAR); Bacteria RARE /HPF (NEGATIVE); Bilirubin SMALL (NEGATIVE); Blood SMALL Ery/ul (0-5); Epithelial Cells FEW /HPF (FEW); Glucose NEGATIVE (NEGATIVE); Ketones NEGATIVE (NEGATIVE); Leukocyte Esterase NEGATIVE (NEGATIVE); Mucus SLIGHT /HPF (NEGATIVE); Nitrite NEGATIVE (NEGATIVE); Protein,Urine Dip NEGATIVE (Negative); RBC 0-2 /HPF (0-2); Specific Gravity 1.027 (1.005-1.025); Urobilinogen 4 mg/dL (0-1)
[2019-10-23] MEDS ORDERED: ROCEPHIN 1 Gm-D5w 50 ml Bag** 1 G/50 ML IVPB IV STA (18:03)
[2019-10-23 18:04] LABS: Barbiturate,Urine NEGATIVE (NEGATIVE); Benzodiazepine,Urine NEGATIVE (NEGATIVE); Cocaine,Urine NEGATIVE (NEGATIVE); Methadone,Urine NEGATIVE (NEGATIVE); Opiate,Urine NEGATIVE (NEGATIVE); PCP,Urine NEGATIVE (NEGATIVE); THC,Urine NEGATIVE (NEGATIVE)
[2019-10-23] MEDS ORDERED: ROCEPHIN 1 Gm-D5w 50 ml Bag** 1 G/50 ML IVPB IV ONE (18:27)
[2019-10-23 18:32] LABS: Amphetamine,Urine POSITIVE (NEGATIVE)
[2019-10-23 19:07] VITALS: BP 111/92; PULSE 83
--- NOTE | 2019-10-23 19:21 | XRAY ---
Indication: Left lower quadrant pain. History diverticulitis. Multiple contiguous axial images obtained through the abdomen and pelvis without contrast using renal stone protocol. Comparison: January 01, 2015. Lung bases again demonstrates minimal bilateral dependent atelectasis. No infiltrate or effusion. Heart is not enlarged. Again no renal calculus or evidence for obstructive uropathy in either system. Noncontrasted stomach and bowel loops appear nonobstructed. Appendectomy and hysterectomy reported.: Again demonstrates mild diffuse scattered colonic fecal debris more than before. There remains descending and sigmoid diverticulosis. Distal descending/proximal sigmoid again demonstrates mild wall thickening with mild pericolonic stranding favoring diverticulitis. No free fluid/air. Right ovary again demonstrates 3.7 cm cyst, previously 4 cm. Spleen remains borderline enlarged today measuring 12 cm.. Remaining liver, gallbladder, pancreas, spleen, adrenal glands, kidneys, ureters, bladder, and aorta appear unremarkable for noncontrast exam. Osseous structures intact. No ventral or inguinal hernias. Impression: 1. Negative renal calculus or evidence for obstructive uropathy. 2. Again colonic diverticulosis with diverticulitis distal descending/proximal sigmoid colon. No complications. Slight worsening diffuse fecal stasis. 3. Again incidental 3.7 cm right ovary cyst and borderline splenomegaly. Comment: Preliminary interpretation was made by C. No critical discrepancy.
== END 2019-10-23 19:19 | disposition home or self-care (01) ==
LOC: ED 16:32
DX: K57.92 Diverticulitis of intestine, part unspecified, without perforation or abscess without bleeding (principal); N39.0 Urinary tract infection, site not specified
CPT/HCPCS: 36000; 36415; 74176; 80053; 80307; 81001; 82150; 83605; 83690; 85025; 96360; 96365; 96374; 96375; 99284; 99291; J0696; J2405; J3010

== ENCOUNTER 2022-12-22 07:49 | Emergency (ER) | payer MEDICAID, OTHER ==
--- NOTE | 2022-12-22 07:56 | ERPHSYRPT ---
- History of Present Illness Time Seen by Provider: 12/22/22 07:55 Historian: patient, family Exam Limitations: no limitations Physician History: pt is 42 yr old female with 5 day hx right abd pain radiating to her back. Hx appe and hyst for endometriosis. Pt had seizure a few years ago and has been seizure free off meds for 3 years. Tender RLQ no palp mass or distension. having N and V. No vag discharge or symptoms. Chest clear. Ht reg without M. Discussed risks/benefits with pt and family of testing including rad for CBC, CMP, Jaquelin, Lipase, UA, and CT abd, and meds zofran, MS, antiacid meds and IVF and pt / family wish to proceed, these are ordered and discussed results . Family present in ER and consulted as independent source for Hx. Pt is a current smoker. Timing/Duration: day(s) Activities at Onset: sleep Quality: cramping, sharpness, stabbing Abdominal Pain Onset Location: RLQ, generalized abdomen Pain Radiation: back Severity of Pain-Max: moderate Severity of Pain-Current: moderate Modifying Factors: Improves With: nothing Associated Symptoms: back, nausea, vomiting Previous symptoms: no prior history Allergies/Adverse Reactions: No Known Drug Allergies Allergy (Verified 12/22/22 08:01) Hx Tetanus, Diphtheria Vaccination/Date Given: Yes (up to date) Hx Influenza Vaccination/Date Given: No Hx Pneumococcal Vaccination/Date Given: No - Review of Systems Constitutional: Fever, Chills Eyes: No Symptoms Ears, Nose, & Throat: No Symptoms Respiratory: No Cough, No Dyspnea Cardiac: No Chest Pain, No Edema, No Syncope Abdominal/Gastrointestinal: Abdominal Pain, Nausea, Vomiting, No Diarrhea Genitourinary Symptoms: No Dysuria Musculoskeletal: Back Pain, No Neck Pain Skin: No Symptoms, No Rash Neurological: No Symptoms, No Dizziness, No Focal Weakness, No Sensory Changes Psychological: No Symptoms Endocrine: No Symptoms Hematologic/Lymphatic: No Symptoms Immunological/Allergic: No Symptoms All Other Systems: Reviewed and Negative - Past Medical History Pertinent Past Medical History: Yes Neurological History: Seizures ENT History: No Pertinent History Cardiac History: No Pertinent History Respiratory History: No Pertinent History Endocrine Medical History: No Pertinent History Musculoskeletal History: No Pertinent History GI Medical History: Diverticulitis History: No Pertinent History Psycho-Social History: Depression, Eating Disorders Female Reproductive Disorders: Endometriosis Other Medical History: updated 01/01/15 - Past Surgical History Past Surgical History: Yes Neuro Surgical History: No Pertinent History Cardiac: No Pertinent History Respiratory: No Pertinent History Gastrointestinal: Appendectomy, Exploratory Laparoscopy Genitourinary: No Pertinent History Musculoskeletal: No Pertinent History Female Surgical History: Other Other Surgical History: ovary removed. fallopian tube removal - Social History Smoking Status: Current every day smoker How long have you smoked: 20 Exposure to second hand smoke: Yes Drug Use: none Patient Lives Alone: No Significant Family History: no pertinent family hx - Nursing Vital Signs Nursing Vital Signs: Initial Vital Signs Temperature 98.1 F 12/22/22 08:03 Pulse Rate 93 H 12/22/22 08:03 Respiratory Rate 14 12/22/22 08:03 Blood Pressure 94/57 12/22/22 08:03 O2 Sat by Pulse Oximetry 100 12/22/22 08:03 Pain Scale Pain Intensity 7 - Physical Exam General Appearance: moderate distress, alert Eye Exam: PERRL/EOMI, eyes nml inspection Ears, Nose, Throat Exam: normal ENT inspection, pharynx normal, moist mucous membranes Neck Exam: normal inspection, non-tender, supple, full range of motion Respiratory Exam: normal breath sounds, lungs clear, No respiratory distress Cardiovascular Exam: regular rate/rhythm, normal heart sounds Gastrointestinal/Abdomen Exam: soft, tenderness, guarding, No distention, No mass, No pulsatile mass Pelvic Exam: deferred Rectal Exam: deferred Back Exam: normal inspection, normal range of motion, No CVA tenderness, No vertebral tenderness Extremity Exam: normal inspection, normal range of motion, pelvis stable Neurologic Exam: alert, oriented x 3, cooperative, normal mood/affect, nml cerebellar function, sensation nml, No motor deficits Skin Exam: normal color, warm, dry SpO2 Interpretation: normal SpO2: 100 O2 Delivery: Room Air - Course Nursing assessment & vital signs reviewed: Yes - CT Exams Abdomen/Pelvis CT Interpretation: Tele-radiologist Report, No appendicitis, Other (rt adnexal cyst prominent caecum) Ordered Tests: Active Orders 24 hr Category Date Time Status IV Insertion STAT Care 12/22/22 08:04 Active ABDOMEN AND PELVIS W/0 CONTRAS [CT] Stat Exams 12/22/22 08:03 Completed AMYLASE Stat Lab 12/22/22 08:06 Completed CBC W DIFF Stat Lab 12/22/22 08:14 Completed CMP Stat Lab 12/22/22 08:06 Completed CULTURE,URINE Stat Lab 12/22/22 08:06 Received HCG QUALITATIVE, SERUM Stat Lab 12/22/22 08:06 Completed LIPASE Stat Lab 12/22/22 08:06 Completed Lactic Acid Stat Lab 12/22/22 08:14 Completed UA W/RFX UR CULTURE Stat Lab 12/22/22 08:06 Completed Medication Summary Discontinued Medications Generic Name Dose Route Start Last Admin Trade Name Ady PRN Reason Stop Dose Admin Famotidine 20 mg 12/22/22 08:04 12/22/22 08:23 Famotidine 20 Mg/1 Vial IV 12/22/22 08:05 20 mg STAT ONE Administration Famotidine Confirm 12/22/22 08:16 Famotidine 20 Mg/1 Vial Administered 12/22/22 08:17 Dose 20 mg IV .STK-MED ONE Sodium Chloride 1,000 mls @ 999 mls/hr 12/22/22 08:04 12/22/22 08:20 Sodium Chloride 0.9% 1000 Ml IV 12/22/22 09:04 999 mls/hr .Q1H1M STA Administration Levofloxacin/Dextrose 750 mg in 150 mls @ 100 mls/hr 12/22/22 08:15 12/22/22 09:05 Levofloxacin 750mg/150ml D5w IV 12/22/22 09:44 100 mls/hr STAT ONE Administration Sodium Chloride Confirm 12/22/22 08:16 Sodium Chloride 0.9% 1000 Ml Administered 12/22/22 08:17 Dose 1,000 mls @ ud .ROUTE .STK-MED ONE Metronidazole 500 mg in 100 mls @ 200 mls/hr 12/22/22 08:16 12/22/22 09:09 Flagyl 500 Mg Ivpb IV 12/22/22 08:45 Infused STAT STA Infusion Metronidazole Confirm 12/22/22 08:19 Flagyl 500 Mg Ivpb Administered 12/22/22 08:20 Dose 500 mg in 100 mls @ ud IV .STK-MED ONE Levofloxacin/Dextrose Confirm 12/22/22 08:19 Levofloxacin 750mg/150ml D5w Administered 12/22/22 08:20 Dose 750 mg in 150 mls @ ud IV .STK-MED ONE Morphine Sulfate 4 mg 12/22/22 08:04 12/22/22 08:26 Morphine Sulfate 4 Mg/Ml Injection IV 12/22/22 08:05 4 mg STAT ONE Administration Morphine Sulfate Confirm 12/22/22 08:16 Morphine Sulfate 4 Mg/Ml Injection Administered 12/22/22 08:17 Dose 4 mg .ROUTE .STK-MED ONE Ondansetron HCl 4 mg 12/22/22 08:04 12/22/22 08:22 Ondansetron Hcl 4 Mg/2 Ml Vial IV 12/22/22 08:05 4 mg STAT ONE Administration Ondansetron HCl Confirm 12/22/22 08:15 Ondansetron Hcl 4 Mg/2 Ml Vial Administered 12/22/22 08:16 Dose 4 mg .ROUTE .STK-MED ONE Pantoprazole Sodium 40 mg 12/22/22 08:04 12/22/22 08:25 Pantoprazole 40 Mg Vial IV 12/22/22 08:05 40 mg STAT ONE Administration Pantoprazole Sodium Confirm 12/22/22 08:16 Pantoprazole 40 Mg Vial Administered 12/22/22 08:17 Dose 40 mg IV .STK-MED ONE Lab/Rad Data: Laboratory Result Diagrams 12/22/22 08:14 12/22/22 08:06 Laboratory Results 12/22/22 12/22/22 12/22/22 Range/Units 08:14 08:14 08:06 WBC 14.7 H (4.0-10.5) x10^3/uL RBC 4.32 (4.1-5.4) x10^6/uL Hgb 12.4 (12.0-16.0) g/dL Hct 37.3 (35-47) % MCV 86.3 (78-100) fL MCH 28.7 (26-32) pg MCHC 33.2 (32-36) g/dL RDW 13.1 (11.5-14.0) % Plt Count 314 (150-450) x10^3/uL MPV 8.6 (7.5-11.0) fL Gran % 74.4 H (36.0-66.0) % Immature Gran % (Auto) 0.5 H (0.00-0.4) % Nucleat RBC Rel Count 0.0 (0.00-0.1) % Eos # (Auto) 0.61 H (0-0.5) x10^3/uL Immature Gran # (Auto) 0.07 H (0.00-0.03) x10^3u/L Absolute Lymphs (auto) 1.18 (1.0-4.6) x10^3/uL Absolute Monos (auto) 1.81 H (0.0-1.3) x10^3/uL Absolute Nucleated RBC 0.00 (0.00-0.01) x10^3u/L Lymphocytes % 8.0 L (24.0-44.0) % Monocytes % 12.3 H (0.0-12.0) % Eosinophils % 4.2 (0.00-5.0) % Basophils % 0.6 (0.0-0.4) % Absolute Granulocytes 10.90 H (1.4-6.9) x10^3/uL Basophils # 0.09 (0-0.4) x10^3/uL Sodium (137-145) mmol/L Potassium (3.5-5.1) mmol/L Chloride (98-107) mmol/L Carbon Dioxide (22-30) mmol/L Anion Gap (5-15) MEQ/L BUN (7-17) mg/dL Creatinine (0.52-1.04) mg/dL Estimated GFR ML/MIN Glucose (74-106) mg/dL Lactic Acid 2.3 H (0.4-2.0) Calcium (8.4-10.2) mg/dL Total Bilirubin (0.2-1.3) mg/dL AST (14-36) U/L ALT (0-35) U/L Alkaline Phosphatase (38-126) U/L Serum Total Protein (6.3-8.2) g/dL Albumin (3.5-5.0) g/dL Amylase (30-110) U/L Lipase (23-300) U/L Serum HCG, Qual NEGATIVE (NEGATIVE) Urine Color (Yellow) Urine Appearance (Clear) Urine pH (4.6-8.0) Ur Specific [place] (1.005-1.030) Urine Protein (Negative) Urine Glucose (UA) (Negative) mg/dL Urine Ketones (Negative) Urine Blood (Negative) Urine Nitrite (Negative) Urine Bilirubin (Negative) Urine Urobilinogen (0.2) mg/dL Ur Leukocyte Esterase (Negative) U Hyaline Cast (Auto) (0-2) /LPF Urine Microscopic RBC (0-5) /HPF Urine Microscopic WBC (0-5) /HPF Ur Epithelial Cells (None Seen) /HPF Urine Bacteria (None Seen) /HPF Urine Culture Reflexed (NO) 12/22/22 12/22/22 Range/Units 08:06 08:06 WBC (4.0-10.5) x10^3/uL RBC (4.1-5.4) x10^6/uL Hgb (12.0-16.0) g/dL Hct (35-47) % MCV (78-100) fL MCH (26-32) pg MCHC (32-36) g/dL RDW (11.5-14.0) % Plt Count (150-450) x10^3/uL MPV (7.5-11.0) fL Gran % (36.0-66.0) % Immature Gran % (Auto) (0.00-0.4) % Nucleat RBC Rel Count (0.00-0.1) % Eos # (Auto) (0-0.5) x10^3/uL Immature Gran # (Auto) (0.00-0.03) x10^3u/L Absolute Lymphs (auto) (1.0-4.6) x10^3/uL Absolute Monos (auto) (0.0-1.3) x10^3/uL Absolute Nucleated RBC (0.00-0.01) x10^3u/L Lymphocytes % (24.0-44.0) % Monocytes % (0.0-12.0) % Eosinophils % (0.00-5.0) % Basophils % (0.0-0.4) % Absolute Granulocytes (1.4-6.9) x10^3/uL Basophils # (0-0.4) x10^3/uL Sodium 137 (137-145) mmol/L Potassium 3.4 L (3.5-5.1) mmol/L Chloride 101 (98-107) mmol/L Carbon Dioxide 25 (22-30) mmol/L Anion Gap 14.4 (5-15) MEQ/L BUN 6 L (7-17) mg/dL Creatinine 0.56 (0.52-1.04) mg/dL Estimated GFR > 60.0 ML/MIN Glucose 172 H (74-106) mg/dL Lactic Acid (0.4-2.0) Calcium 8.5 (8.4-10.2) mg/dL Total Bilirubin 1.40 H (0.2-1.3) mg/dL AST 22 (14-36) U/L ALT 28 (0-35) U/L Alkaline Phosphatase 170 H (38-126) U/L Serum Total Protein 7.0 (6.3-8.2) g/dL Albumin 3.7 (3.5-5.0) g/dL Amylase 38 (30-110) U/L Lipase 25 (23-300) U/L Serum HCG, Qual (NEGATIVE) Urine Color Dark Yellow A (Yellow) Urine Appearance Turbid A (Clear) Urine pH 5.5 (4.6-8.0) Ur Specific [place] 1.015 (1.005-1.030) Urine Protein 100 A (Negative) Urine Glucose (UA) Negative (Negative) mg/dL Urine Ketones Negative (Negative) Urine Blood Moderate A (Negative) Urine Nitrite Positive A (Negative) Urine Bilirubin Negative (Negative) Urine Urobilinogen 2.0 A (0.2) mg/dL Ur Leukocyte Esterase Large A (Negative) U Hyaline Cast (Auto) NONE SEEN (0-2) /LPF Urine Microscopic RBC 6-10 A (0-5) /HPF Urine Microscopic WBC >100 A (0-5) /HPF Ur Epithelial Cells Rare (None Seen) /HPF Urine Bacteria Many A (None Seen) /HPF Urine Culture Reflexed YES (NO) - Progress Progress: improved, re-examined Progress Note: 12/22/22 08:20 discussed risk/benefits of Ab Tx with pt and family and they wish to proceed. 12/22/22 11:09 Repeat exam now with no tenderness and still no peritoneal signs or rebound. I have advised the pt there is a possible right cystic mass that need more workup and imaging like MRI or US and that we did not yet determine a precise cause for her abdominal symptoms and findings even though there is a UTI and that there can still be additional pathology evolving undetected. Discussed results with pt and she is feeling better and prefers DC with outpt f/u for her abd symptoms and right adnexal cystic area/mass with her PMD rather than in house hosp or further w/u in ER including for the initially slight elevation of the lactate to recheck after hydration. She has a normal mental status and the decisional capacity to make this choice. 12/22/22 11:16 Counseled pt/family regarding: lab results, diagnosis, need for follow-up, rad results, smoking cessation Medical Desision Making - Independent Historian Additional History obtained from: Family - Discussion of managment Reviewed:: Test results, Need for additional workup Agreed on:: Treatment plan, need for follow-up - Diagnostic Testing Diagnostic test were ordered, analyzed, and reviewed by me: Yes Radiological Interpretation: Teleradiologist Report - Risk of complications The pt has a mod risk of morbidity or mortality based on: Need for prescription drug management The pt has a high risk of morbidity or mortality based on: Decision regarding hospitilization or escalation of hosp level of care - Departure Departure Disposition: Home Clinical Impression: UTI (urinary tract infection), mild hypokalemia, Abdominal pain of unknown etiology, right adnexal cystic area/mass, mild hepatomegally Condition: Good Critical Care Time: No Referrals: DOCTOR,NO FAMILY [Primary Care Provider] - Follow up/PCP as directed Instructions: Hypokalemia (DC), Urinary Tract Infection, Adult (DC), Abdominal pain, Quitting Smoking ED Additional Instructions: follow-up with your DrThda this week to workup the abdominal pain and the right cystic area on CT - this may need an ultrasound or MRI. THe liver is also slightly enlarged and your potassium is a little low and the bilirubin and alk phos are a little elevated as well and elevated blood count indicating infection and elevated lactate, which also need followup. We have not yet determined the exact cause for your symptoms although there is also a urinary infection. So there may be conditions still developing in the bowels that we do not yet know about and that makes the followup with your Dr. more important. Return meantime if not improving or vomiting or other symptoms of concern. Prescriptions: Ciprofloxacin [Cipro 500 MG] 500 mg PO BID #14 tablet
[2022-12-22] MEDS ORDERED: Pepcid 20 MG VIAL IV ONE ×2 (08:04→08:16)
[2022-12-22] MEDS ORDERED: PROTONIX 40 MG IV IV ONE ×2 (08:04→08:16)
[2022-12-22] MEDS ORDERED: MORPHINE SULFATE 4 MG INJ IV ONE (08:04)
[2022-12-22] MEDS ORDERED: Zofran 4 MG/2 ML VIAL IV ONE (08:04)
[2022-12-22] MEDS ORDERED: Sodium Chloride 0.9% 1000 ML 1,000 ML IV STA (08:04)
[2022-12-22] MEDS ORDERED: LEVOFLOXACIN 750MG/150ML D5W 750 MG/150 ML BAG IV ONE ×2 (08:15→08:19)
[2022-12-22] MEDS ORDERED: Zofran 4 MG/2 ML VIAL ONE (08:15)
[2022-12-22 08:16] VITALS: TEMP 98.1
[2022-12-22] MEDS ORDERED: Sodium Chloride 0.9% 1000 ML 1,000 ML ONE (08:16)
[2022-12-22] MEDS ORDERED: FLAGYL 500 MG IVPB 500 MG/100 ML BAG IV STA (08:16)
[2022-12-22] MEDS ORDERED: MORPHINE SULFATE 4 MG INJ ONE (08:16)
[2022-12-22 08:17] LABS: BASOPHIL % 0.6 % (0.0-0.4); Basophil (Absolute #) 0.09 x10^3/uL (0-0.4); Eosinophil % 4.2 % (0.00-5.0); Eosinophil (Absolute #) 0.61 x10^3/uL (0-0.5); Hematocrit 37.3 % (35-47); Hemoglobin 12.4 g/dL (12.0-16.0); IMMATURE GRAN # 0.07 x10^3u/L (0.00-0.03); IMMATURE GRAN % 0.5 % (0.00-0.4); Lymphocyte (Absolute #) 1.18 x10^3/uL (1.0-4.6); Mean Cell Volume 86.3 fL (78-100); Mean Corpuscular Hemoglobin 28.7 pg (26-32); Mean Corpuscular Hgb Concent. 33.2 g/dL (32-36); Mean Platelet Volume 8.6 fL (7.5-11.0); Monocyte (Absolute #) 1.81 x10^3/uL (0.0-1.3); Monocytes % 12.3 % (0.0-12.0); Neutrophil % 74.4 % (36.0-66.0); Platelet Count 314 x10^3/uL (150-450); Red Blood Count 4.32 x10^6/uL (4.1-5.4); Red Cell Distribution Width 13.1 % (11.5-14.0); White Blood Count 14.7 x10^3/uL (4.0-10.5)
[2022-12-22] MEDS ORDERED: FLAGYL 500 MG IVPB 500 MG/100 ML BAG IV ONE (08:19)
[2022-12-22 08:30] LABS: ALBUMIN 3.7 g/dL (3.5-5.0); ALKALINE PHOSPHATASE 170 U/L (38-126); AMYLASE 38 U/L (30-110); ANION GAP 14.4 MEQ/L (5-15); BLOOD UREA NITROGEN 6 mg/dL (7-17); CHLORIDE 101 mmol/L (98-107); Calcium 8.5 mg/dL (8.4-10.2); Carbon Dioxide 25 mmol/L (22-30); Creatinine 1 0.56 mg/dL (0.52-1.04); EST GLOMERULAR FILTRATION RATE > 60.0 ML/MIN; Glucose 172 mg/dL (74-106); LIPASE 25 U/L (23-300); Potassium 3.4 mmol/L (3.5-5.1); SGOT/AST 22 U/L (14-36); SGPT/ALT 28 U/L (0-35); SODIUM 137 mmol/L (137-145)
[2022-12-22 08:31] LABS: Appearance Turbid (Clear); Bacteria Many /HPF (None Seen); Bilirubin Negative (Negative); Blood Moderate (Negative); Epithelial Cells Rare /HPF (None Seen); Glucose, Urine Negative (Negative); Hyaline Casts NONE SEEN /LPF (0-2); Ketones Negative (Negative); Leukocyte Esterase Large (Negative); Nitrite Positive (Negative); Ph 5.5 (4.6-8.0); Protein,Urine Dip 100 (Negative); Specific Gravity 1.015 (1.005-1.030); WBC >100 /HPF (0-5)
[2022-12-22 08:33] LABS: HCG SERUM TEST NEGATIVE (NEGATIVE)
[2022-12-22 08:37] LABS: ADD URINE CULTURE? YES (NO)
[2022-12-22 10:15] VITALS: PULSE 91; RESP 18
--- NOTE | 2022-12-22 10:20 | XRAY ---
CLINICAL HISTORY:Abd pain RLQ COMPARISON:None. TECHNIQUE:CT scan of the abdomen and pelvis was performed without IV contrast. Coronal and sagittal reconstructive images were also obtained. FINDINGS: Caecum appears prominent measuring 7.3cm (Cut off is 9.0cm). Appendix is surgically removed. H/O velasquez hysterectomy. Air foci are seen within the vagina and stump. Right adnexa cystic area versus bowel loop is seen. Fecal loaded gas distended ascending and transverse colon seen. The liver is mildly increased in size measuring 18.5cm. No focal or diffuse parenchymal abnormality. The intrahepatic biliary radicals and the bile ducts are normal. The spleen, pancreas, and adrenal glands are unremarkable. The kidneys are unremarkable. They are normal in size and shape. No calculi or hydronephrosis. The gallbladder is normal. No pericholecystic collection or radio dense calculi in the gall bladder. There is no evidence of significant enlargement of the mesenteric or retroperitoneal lymph nodes. The urinary bladder is unremarkable. On appropriate lung window images, no significant abnormality is seen in the visualized lung bases. The osseous structures in the pelvis, lower rib cage and lumbar spine show no abnormality. No lytic or sclerotic bone lesions. IMPRESSION: 1. Caecum appears prominent measuring 7.3cm (Cut off is 9.0cm). 2. H/O velasquez hysterectomy . Air foci are seen within the vagina and stump. Right adnexa cystic area versus bowel loop is seen. Please correlate with ultrasound or MRI as clinically warranted. 3. Appendix is removed. 4. Fecal loaded gas distended ascending and transverse colon seen. 5. Mild hepatomegaly. Electronically Signed by: Adolfo May MD. 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
[2022-12-22 10:38] VITALS: O2SAT 100
[2022-12-22 11:10] VITALS: BP 113/56
== END 2022-12-22 12:42 | disposition home or self-care (01) ==
LOC: ED 07:49
DX: N39.0 Urinary tract infection, site not specified (principal); E87.6 Hypokalemia; R10.31 Right lower quadrant pain; N83.9 Noninflammatory disorder of ovary, fallopian tube and broad ligament, unspecified; R16.0 Hepatomegaly, not elsewhere classified; R11.2 Nausea with vomiting, unspecified; Z72.0 Tobacco use
CPT/HCPCS: 36000; 36415; 74176; 80053; 81001; 82150; 83605; 83690; 84703; 85025; 87077; 87086; 87186; 96365; 96374; 96375; 99284; J1956; J2270; J2405